=== PATIENT | male | born 1975 | race Caucasian/White ===

== ENCOUNTER 2019-11-30 18:05 | Emergency (ER) | payer BC, SELFPAY ==
[~2019-11-30] VITALS: Ht 180.3 cm; Wt 100.0 kg
[~2019-11-30 18:05] MED LIST: CYCL-1 PO
[2019-11-30 18:27] VITALS: BP 130/79
[2019-11-30 19:12] LABS: BASOPHILS # (AUTO) 0.1 X10'3 (0-0.2); BASOPHILS % (AUTO) 0.7 % (0-1); EOSINOPHILS # (AUTO) 0.2 X10'3 (0-0.9); EOSINOPHILS % (AUTO) 2.4 % (0-6); HEMATOCRIT 48.5 % (42.0-52.0); HEMOGLOBIN 16.6 g/dl (14.0-17.9); LYMPHOCYTES # (AUTO) 3.6 X10'3 (1.1-4.8); LYMPHOCYTES % (AUTO) 41.2 % (21-51); MEAN CORPUSCULAR HEMOGLOBIN 32.1 PG (27.0-31.0); MEAN CORPUSCULAR HGB CONC 34.2 g/dL (33.0-36.5); MEAN CORPUSCULAR VOLUME 93.8 FL (78-98); MEAN PLATELET VOLUME 7.6 FL (7.4-10.4); MONOCYTES # (AUTO) 0.5 X10'3 (0-0.9); MONOCYTES % (AUTO) 6.3 % (2-12); NEUTROPHILS # (AUTO) 4.3 X10'3 (1.8-7.7); NEUTROPHILS % (AUTO) 49.4 % (42-75); PLATELET COUNT 234 X10'3 (140-440); RED BLOOD COUNT 5.17 X10'6 (4.70-6.10); RED CELL DISTRIBUTION WIDTH 12.4 % (11.5-14.5); WHITE BLOOD COUNT 8.6 X10'3 (4.5-11.0)
[2019-11-30 19:44] LABS: ALANINE AMINOTRANSFERASE 63 U/L (12-78); ALBUMIN 4.6 G/DL (3.4-5.0); ALBUMIN/GLOBULIN RATIO 1.2 (1.1-1.5); ALKALINE PHOSPHATASE 41 IU/L (46-116); ANION GAP 15 (8-16); ASPARTATE AMINO TRANSFERASE 25 U/L (10-37); BILIRUBIN,TOTAL 0.6 MG/DL (0.1-1.0); BLOOD UREA NITROGEN 25 MG/DL (7-18); BUN/CREATININE RATIO 23.1 (5.4-32.0); CHLORIDE 103 MMOL/L (99-107); CREATININE 1.08 MG/DL (0.60-1.10); GLUCOSE 111 MG/DL (70-104); POTASSIUM 3.9 MMOL/L (3.5-5.1); SODIUM 139 MMOL/L (135-145); TOTAL CARBON DIOXIDE 21.1 MMOL/L (24-32); TOTAL PROTEIN 8.3 G/DL (6.4-8.2); eGFR 74 ML/MIN
[2019-11-30] MEDS ORDERED: HYDROcodone/acetaminophen 10/325mg tab PO ONE (20:15)
[2019-11-30] MEDS ORDERED: CEPH500C5 PO (20:46)
[2019-11-30] MEDS ORDERED: BACDS PO (20:46)
[2019-11-30] MEDS ORDERED: ketorolac trometh inj. 60 MG/2 ML VIAL IM ONE (20:50)
[2019-11-30] MEDS ORDERED: cephalexin 250mg capsule PO ONE (20:50)
== END 2019-11-30 21:50 | disposition home or self-care (01) ==
LOC: ER 18:07
DX: L03.317 Cellulitis of buttock (principal); G89.29 Other chronic pain; M54.9 Dorsalgia, unspecified; Z90.89 Acquired absence of other organs; Z98.890 Other specified postprocedural states; Z72.89 Other problems related to lifestyle; Z79.899 Other long term (current) drug therapy
CPT/HCPCS: 36415; 80053; 83605; 84145; 85025; 87040; 96372; 99283; J1885

== ENCOUNTER 2020-07-10 17:43 | Emergency (ER) | payer BC, SELFPAY ==
[~2020-07-10] VITALS: Ht 180.3 cm; Wt 97.3 kg
[~2020-07-10 17:43] MED LIST changes: +CEPH-585 PO
[2020-07-10 17:49] VITALS: BP 174/105
[2020-07-10] MEDS ORDERED: ketorolac tromethamine 15mg/ml inj. IM ONE (20:25)
[2020-07-10] MEDS ORDERED: CLIN300C70 PO (20:29)
== END 2020-07-10 20:34 | disposition home or self-care (01) ==
LOC: ER 17:44
DX: K08.89 Other specified disorders of teeth and supporting structures (principal); R42 Dizziness and giddiness; R68.84 Jaw pain; G89.29 Other chronic pain; M10.9 Gout, unspecified; Z72.89 Other problems related to lifestyle; Z90.89 Acquired absence of other organs; Z98.890 Other specified postprocedural states; Z79.899 Other long term (current) drug therapy
CPT/HCPCS: 70450; 96372; 99284; J1885

== ENCOUNTER 2020-09-06 18:44 | Emergency (ER) | payer BC ==
[~2020-09-06] VITALS: Ht 180.3 cm; Wt 93.5 kg
[2020-09-06] MEDS ORDERED: acetaminophen 325mg tablet PO ONE (22:30)
[2020-09-06] MEDS ORDERED: ketorolac trometh. 30mg/ml inj. IM ONE (22:30)
[2020-09-06 22:50] VITALS: BP 128/67
== END 2020-09-06 22:52 | disposition home or self-care (01) ==
LOC: ER 18:46
DX: S29.019A Strain of muscle and tendon of unspecified wall of thorax, initial encounter (principal); M54.5 Low back pain; G89.29 Other chronic pain; M10.9 Gout, unspecified; Z90.89 Acquired absence of other organs; Z98.890 Other specified postprocedural states; Z72.89 Other problems related to lifestyle; Z79.2 Long term (current) use of antibiotics; Z79.899 Other long term (current) drug therapy; X58.XXXA Exposure to other specified factors, initial encounter; Y93.89 Activity, other specified; Y92.89 Other specified places as the place of occurrence of the external cause; Y99.8 Other external cause status
CPT/HCPCS: 71045; 93005; 96372; 99283; J1885